=== PATIENT | male | born 1995 | race Caucasian/White ===

== ENCOUNTER 2023-09-22 17:49 | Emergency (ER) | payer MEDICAID ==
[~2023-09-22] VITALS: Ht 170.2 cm; Wt 59.0 kg
[2023-09-22 17:57] VITALS: O2SAT 100
[2023-09-22 20:00] VITALS: TEMP 98
[2023-09-22] MEDS ORDERED: NAPR220C61 MT (20:24)
[2023-09-22] MEDS: FENTANYL CITRATE/PF 50MCG/ML 2ML VIAL IV ONE (20:38)
[2023-09-22] MEDS: KETOROLAC 30MG/ML VIAL IV ONE (20:42)
[2023-09-22] MEDS: TETANUS, DIPHTHERIA, PERTUSSIS VAC/PF 0.5ML (>10YR OLD) IM ONE (20:43)
[2023-09-22 21:30] VITALS: BP 122/69; PULSE 61; RESP 12
== END 2023-09-22 21:36 | disposition home or self-care (01) ==
LOC: ER 17:49
DX: S82.002A Unspecified fracture of left patella, initial encounter for closed fracture (principal); G89.11 Acute pain due to trauma; V00.848A Other accident with standing micro-mobility pedestrian conveyance, initial encounter; Y93.89 Activity, other specified; Y92.89 Other specified places as the place of occurrence of the external cause; Y99.8 Other external cause status
CPT/HCPCS: 73552; 73562; 73590; 90715; 90471; 96374; 99284; J1885; Z7610 ×2; L1830